=== PATIENT | male | born 1995 | race Hispanic/Latino ===

== ENCOUNTER 2020-07-24 19:09 | Emergency (ER) | payer SELFPAY ==
[~2020-07-24] VITALS: Ht 165.1 cm; Wt 59.0 kg
--- NOTE | 2020-07-24 22:46 | Diagnostic Imaging Report ---
X-ray left knee 3 views HISTORY: Pain. Edema, redness COMPARISON: None available. FINDINGS: Bones: No acute displaced fracture. Osseous alignment is within normal limits. Joints: The joint spaces are well-maintained. Soft tissues: Mild soft tissue edema about the knee. IMPRESSION: No acute radiographic osseous abnormality. Mild soft tissue edema about the knee. Signed by: Baljinder Mchugh DO on 07/24/2020 10:42 PM
--- OUTSIDE RECORDS SUMMARY | 2020-07-24 23:13 | XMS REPORT | Continuity of Care Document ---
Author Author [facility] t Organization [facility] Address [address] [place] [address] Phone Unavailable Care Team Providers Care Check Weigher Name Role Phone Unavailable Unavailable Problems This patient has no known problems. Allergies, Adverse Reactions, Alerts This patient has no known allergies or adverse reactions. Medications This patient has no known medications. Procedures This patient has no known procedures. Results Test Description Test Time Test Comments Results Result Comments Source KNEE LEFT THREE VIEWS 2020-07-24 22:41:[address] [address] Patient Name: KAYA CHAVEZ MR #: [id number] : 1995 Age/Sex: 24/M Req #: [id number] Adm Physician: Ordered by: NIA WALKER MD Report #: [id number] Location: ER Room/Bed: Procedure: [id number] DX/KNEE LEFT THREE VIEWS Exam Date: 07/24/20 Exam Time: 2105 REPORT STATUS: Signed X-ray left knee 3 views HISTORY: Pain. Edema, redness COMPARISON: None available. FINDINGS: Bones: No acute displaced fracture. Osseous alignment is within normal limits. Joints: The joint spaces are well-maintained. Soft tissues: Mild soft tissue edema about the knee. IMPRESSION: No acute radiographic osseous abnormality. Mild soft tissue edema about the knee. Signed by: Baljinder Mchugh DO on 07/24/2020 10:42 PM Dictated By: BALJINDER MCHUGH DO 41 Transcribed By: LOU on 07/24/202241 COPY TO: NIA WALKER MD
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
[2020-07-25] MEDS ORDERED: TRAMADOL HCL 50 MG TAB PO ONE
[2020-07-25] MEDS ORDERED: TRAMADOL HCL 50 MG TAB ONE (00:04)
== END 2020-07-25 00:09 | disposition home or self-care (01) ==
LOC: ER 20:00
DX: S80.02XA Contusion of left knee, initial encounter (principal); S70.311A Abrasion, right thigh, initial encounter; V87.8XXA Person injured in other specified noncollision transport accidents involving motor vehicle (traffic), initial encounter; Y92.488 Other paved roadways as the place of occurrence of the external cause; F17.210 Nicotine dependence, cigarettes, uncomplicated
CPT/HCPCS: 99284